=== PATIENT | female | born 1975 | race Caucasian/White ===

== ENCOUNTER 2017-01-14 09:39 | Observation (INO) | payer OTHER ==
--- NOTE | ~2017-01-14 | OP ---
Record Of Operation [facility] [address] [place]. [address] NAME: YAZAN WALSH : 75 STATUS : DIS Malachi PAT#: [id number] AGE: 41 ADM/REG DATE : 01/14/17 MR#: [id number] REPORT SERV DATE: 01/14/17 DICTATED BY: ARTUR GÓMEZ DATE: 01/14/17 REPORT STATUS : Draft TRANSCRIBED BY: MODL DATE: 01/14/17 DATE OF PROCEDURE: 01/14/2017 PREOPERATIVE DIAGNOSES: 1. Herniated nucleus pulposus with myelopathy C5-6. 2. Herniated nucleus pulposus and foraminal stenosis. 3. Right C6-7 with radiculopathy. POSTOPERATIVE DIAGNOSES: 1. Herniated nucleus pulposus with myelopathy C5-6. 2. Herniated nucleus pulposus and foraminal stenosis. 3. Right C6-7 with radiculopathy. PROCEDURES: 1. Microscopic navigation assisted surgery. 2. Anterior cervical diskectomy, foraminotomy, C5-6, C6-7. 3. Implantation of cervical disk arthroplasty using prestige LP C5-6, C6-7. SURGEON: Artur Gómez D.O. GIS ENGINEER: Brenton Moore. ANESTHESIA: General. BLOOD LOSS: 30 mL. INDICATIONS FOR SURGERY: Indications for surgery and risks are explained. They are noted in history and physical. See that for detail. OPERATION: The patient had been given IV pain medication. She was brought to the preop area. The patient was identified. IV antibiotics were given preoperatively. Neurophysiology monitoring leads inserted. She was brought to the operative suite. General anesthetic including endotracheal intubation was administered. Please note in the preop area, we had her demonstrate how much she could flex her neck without causing severe Lhermitte's phenomenon. She could barely flex her neck, thus we were aware of the amount of cord compression that could accompany with her intubation, thus she was intubated in a neutral alignment. After general endotracheal intubation was administered, preoperative and prepositional MEPs, SEPs were obtained and were normal. The scalp was painted with Betadine solution. Hitchins three-point fixation attached to the skull using 60 pounds of torque in standard position. The Inman attached to the [facility]. The ITS [employer] navigation registration frame attached to the Hitchins. The isolation drapes were placed. The neck was scrubbed with Hibiclens solution. DuraPrep was painted. Sterile drapes applied. Next, an intraoperative CT scan with O-arm obtained, CT information used to register the Record Of Operation [address] [place]. [address] NAME: YAZAN WALSH : 75 STATUS : DIS Malachi PAT#: [id number] AGE: 41 ADM/REG DATE : 01/14/17 MR#: [id number] REPORT SERV DATE: 01/14/17 DICTATED BY: ARTUR GÓMEZ DATE: 01/14/17 REPORT STATUS : Draft TRANSCRIBED BY: MODMira DATE: 01/14/17 navigational system. With navigational assistance, I identified C5-6 and C6-7. At the mid point of the body of C6, a transverse 2.5 cm skin incision was carried out. The platysma was incised in line with the skin incision. The superficial layer of the deep cervical fascia was released along the anterior border of sternocleidomastoid. Blunt dissection was carried out to the retropharyngeal space where the longus coli muscles were subperiosteally elevated. Retractors were placed. We re-identified the correct level of surgery intraoperatively with navigational assistance. [place] distractor pins placed in the midline to alina the midline. We placed one cephalad at C6 and caudal at C7. The microscope was sterilely draped and used throughout the remainder of the procedure. Anterior diskectomy was carried out using curettes and rongeurs. As we widened the interbody space, we worked posteriorly to remove the entire disk as well as the endplate cartilage completely. The uncinate processes were debrided. A wide foraminotomy was carried out using a 3 mm and 2 mm leonardo bur as well as 1 mm Kerrison rongeur. Once we had the decompression of the foramen on the right completely decompressed, the wound was irrigated. Please note, on the right side, there was also a [id number] soft disk herniation, which probably was causing the most acute pain that she was experiencing as far as the right shoulder and arm is concerned. We then brought a C-arm into the operative suite. A live intraoperative imaging was used to determine the appropriate height and depth. We chose a 6 x 16 mm implant. Once this had been chosen, the drill guide was placed in the midline. The rotation was checked using navigational assistance as well as the C- arm. We then drilled the four holes and the drill guide was then removed. The rail cutter was then used to cut the rail troughs, followed by irrigation and final implantation of the implant. Once the final implant position had been checked, the AP and lateral x-rays revealed good position, good rotational stability, etc. The meticulous hemostasis was obtained. The retractor was removed proximal at the C5-6 level. We then repeated the same identical steps. At C5-6, there was a significant difference in that there was a large, soft disk herniation with some disk osteophyte complex centrally causing her the marked cord compression. We were able to completely remove the disk osteophyte complex with micro pituitaries and a 1 mm Kerrison rongeurs. Once we had completed the decompression, we did the foraminal debridement. We then determined this with live C-arm the same height and depth and the implantation of the Prestige LP was carried out using identical steps as noted below. Finally, after completing the surgery, the wound was carefully inspected. There was no bleeding or no abnormality found. We felt that she did not need a drain. The platysma was closed with a running 3-0 Vicryl suture. The subcutaneous tissue closed with 3-0 Vicryl suture. Subcuticular 4-0 PDS used for skin closure. Sterile dressings applied. The patient awakened, extubated, taken to recovery room in satisfactory condition having tolerated procedure well. Sponge, needle, and instrument counts were correct. No intraoperative complications noted. Record Of Operation [address] [place]. [address] NAME: YAZAN WALSH : 75 STATUS : DIS Malachi PAT#: [id number] AGE: 41 ADM/REG DATE : 01/14/17 MR#: [id number] REPORT SERV DATE: 01/14/17 DICTATED BY: ARTUR GÓMEZ DATE: 01/14/17 REPORT STATUS : Draft TRANSCRIBED BY: MODMira DATE: 01/14/17 THAD/GRAHAM Artur Gómez D.O. / [id number] CC: Artur Gómez D.O.
--- NOTE | ~2017-01-14 | PREOPHP ---
PreOp History and Physical [facility] [address] [place]. [address] NAME: YAZAN WALSH : 75 STATUS : ADM Malachi PAT#: [id number] AGE: 41 ADM/REG DATE : 01/14/17 MR#: [id number] REPORT SERV DATE: 01/14/17 DICTATED BY: ARTUR GÓMEZ DATE: 01/14/17 REPORT STATUS : Draft TRANSCRIBED BY: MODMira DATE: 01/14/17 CHIEF COMPLAINT: Neck pain, right shoulder and arm pain. HISTORY OF PRESENT ILLNESS: This is a 41-year-old female who has been treated in our office for several weeks for increasing amounts of right shoulder and arm pain and had some neck pain. The patient's symptoms have become so intractable that she can hardly take the pain, which is now 10/10. I had seen her as well as my physician phlebotomist medical lab assistant seeing her, and she has had much conservative care with time, medication, physical therapy, emergency care tech. She was managing reasonably well, but over the last two weeks, the pain has become markedly worse. She now cannot sleep. She was literally crying in the office when I saw her on her last visit. I felt that we should proceed based on her symptoms and also she had myelopathic findings. The patient was agreeable and wanted to proceed. I should note that her plain x-rays revealed mild degrees of spondylosis at C5-6 and C6-7. MRI was obtained and the MRI, I believe, has been misread by the radiologist. I have indicated this in my notes with significant disk osteophyte complex, and it is mostly a soft disk causing cord compression at C5-6. The MRI interpretation is that it is a disk osteophyte complex that causes flattening of the cord without central stenosis, which does not make sense, but that is the actual interpretation, which I think is incorrect. She also had a disk osteophyte complex and severe for right-sided foraminal narrowing. The patient has obvious myeloradiculopathy, I think C5-6 is a myelopathic level and C6-7 is a radiculopathy level. I had scheduled her for surgery and we had gone over the options of disk arthroplasty versus fusion. It is clear from the literature with seven-year followup that this is the standard of care and clearly this patient was a good candidate for a disk arthroplasty. For reasons beyond my understanding, her insurance company contacted us on Saturday indicating that the surgery was not approved because they felt it was experimental. This is obviously I think someone making a very poor and incorrect decision. Over the weekend, she said her pain became just so bad and her arm felt like it was going to fall off. She said the pain in the right side of her chest and right arm was so numb, she could hardly even feel it. She contacted our office first thing this morning and said something had to be done, and she was seen by my PA, again with pain 10/10 with myelopathic findings and I advised to admit and we will proceed with surgical intervention as there is no other option left for this patient. The patient understands that there are risks including, but not limited to infection, there could be injury to the thecal sac, the midline structures including the thyroid, trachea, esophagus, or the spinal cord itself with numbness, tingling, weakness, paralysis, quadriplegia, or even . Vertebral arteries, carotid arteries could be injured with massive blood loss or exsanguination. Recurrent laryngeal nerve can always have injury that could result and there is hoarseness, there can always be chronic dysphagia. No guarantees this will resolve any or all symptoms. Perioperative complications such as UTI, PE, pneumonia, CO, CVA, etc., were explained. The patient and her want to proceed. 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 Also, please note, because of the complexity of surgery and the need to identify correct level of surgery intraoperatively as well as desire to carry out the safest and most precise dissection, we feel intraoperative navigation is mandatory. PreOp History and Physical [address] [place]. [address] NAME: YAZAN WALSH : 75 STATUS : ADM Malachi PAT#: [id number] AGE: 41 ADM/REG DATE : 01/14/17 MR#: [id number] REPORT SERV DATE: 01/14/17 DICTATED BY: ARTUR GÓMEZ DATE: 01/14/17 REPORT STATUS : Draft TRANSCRIBED BY: GRAHAM DATE: 01/14/17 PAST MEDICAL HISTORY: None. PAST SURGICAL HISTORY: She has had a cholecystectomy, tubal ligation, wisdom tooth extraction, and endometrial ablation. CURRENT MEDICATIONS: Gabapentin and Flexeril. She does not like narcotics, they make her very sick. ALLERGIES: NONE. SOCIAL HISTORY: She is . 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 She never smoked. Does not use any tobacco or alcohol. FAMILY HISTORY: Completely negative. REVIEW OF SYSTEMS: Also otherwise negative. PHYSICAL EXAMINATION: VITAL SIGNS: She is 5 feet 7 inches, 205 pounds. BMI is 32. GENERAL: She is alert, cooperative, well oriented. She does appear in acute painful distress. HEENT: She is normocephalic. Pupils are equal and reactive to light. Extraocular muscles intact. Oral exam is grossly normal. NECK: No thyromegaly is palpated. No carotid bruits are auscultated. MUSCULOSKELETAL: The neck itself has very limited range of motion due to severe pain. She has a positive Lhermitte's sign with any flexion at all. She has a positive Spurling sign and positive abducted arm sign on the right. She has weakness in her wrist extensors, wrist flexors, graded 4-/5 on the right. There was an absence of both triceps reflex on the right. On the left, her reflexes, triceps, is 2/4. She has hyperextension, hyperreflexia in the lower extremities. She has upgoing toes and 3-4 beat ankle clonus. There is no sensory deficit in the lower extremities, but she has C7 deficit to light touch in the upper extremities on the right. Abnormal pain behavior is negative. The patient has no shoulder instability or impingement. Tinel sign is negative at the elbow and wrist. No signs of thoracic outlet syndrome are noted. LUNGS: Clear to auscultation. HEART: Regular rate and rhythmic. ABDOMEN: Soft with good bowel sounds. No peritoneal signs are noted. EXTREMITIES: Lower extremity musculoskeletal exam is grossly intact and normal. There are good pulses in all four extremities. No abnormal skin lesions are found. ASSESSMENT AND RECOMMENDATIONS: As listed above. SH/MODL PreOp History and Physical [address] [address] NAME: YAZAN WALSH : 75 STATUS : ADM Malachi PAT#: [id number] AGE: 41 ADM/REG DATE : 01/14/17 MR#: [id number] REPORT SERV DATE: 01/14/17 DICTATED BY: ARTUR GÓMEZ DATE: 01/14/17 REPORT STATUS : Draft TRANSCRIBED BY: GRAHAM DATE: 01/14/17 Artur Gómez D.O. / [id number] CC: Artur Gómez D.O.
[~2017-01-14 09:39] MED LIST: FISH OIL1200 MG PO; FLEX PO; FLONASE NAS; NEUR100 PO; NEXIUM20 M1 PO
[2017-01-14 10:41] LABS: ASCORBIC ACID (UR NOT ORDER) NEG (NEG); BILIRUBIN, URINE NEGATIVE (NEG); KETONE, URINE NEGATIVE (NEG); LEUKOCYTE ESTERASE(NOT OR NEG (NEG); WBC (NOT ORDERED) (RFLEX) < 1 (0-5)
== END 2017-01-14 19:00 | disposition home or self-care (01) ==
LOC: 3SO 09:39
PROVIDERS: Orthopaedic Surgery Orthopaedic Surgery of the Spine
PROC: 0RR30JZ Replacement of Cervical Vertebral Disc with Synthetic Substitute, Open Approach (ICD-10-PCS; principal; 2017-01-14 10:00)
DX: M50.022 Cervical disc disorder at C5-C6 level with myelopathy (principal); M54.12 Radiculopathy, cervical region; M48.02 Spinal stenosis, cervical region; K31.84 Gastroparesis; Z90.49 Acquired absence of other specified parts of digestive tract; Z98.890 Other specified postprocedural states; Z98.51 Tubal ligation status
CPT/HCPCS: 71010; 81001; 84703; 88304; 88311; A9270-GY; C1713; G0378; J0690; J1170; J2250; J2370; J2405; J2550; J2710; J3010